=== PATIENT | female | born 1955 | race American Indian/Alaskan Native ===

== ENCOUNTER 2024-03-22 21:06 | Emergency (ER) | payer OTHER, MEDICARE ==
[~2024-03-22] VITALS: Ht 152.4 cm; Wt 69.8 kg
[~2024-03-22 21:06] MED LIST: CELEBREX50 MG PO; HYDROCODON-ACE1 EA10 PO; LEVOFLOXACIN750 MG PO; LIPITOR20 MG PO; SKYRIZI75 MG/0.83 SUB-Q; WELLBUTRIN SR100 MG PO
[2024-03-22 23:02] VITALS: BP 128/59
== END 2024-03-22 23:04 | disposition home or self-care (01) ==
LOC: ED 21:06
DX: S06.0X0A Concussion without loss of consciousness, initial encounter (principal); S50.01XA Contusion of right elbow, initial encounter; S60.011A Contusion of right thumb without damage to nail, initial encounter; S70.01XA Contusion of right hip, initial encounter; E11.9 Type 2 diabetes mellitus without complications; M81.0 Age-related osteoporosis without current pathological fracture; Z86.73 Personal history of transient ischemic attack (TIA), and cerebral infarction without residual deficits; Z88.8 Allergy status to other drugs, medicaments and biological substances; Z88.1 Allergy status to other antibiotic agents; Z79.1 Long term (current) use of non-steroidal anti-inflammatories (NSAID); Z79.899 Other long term (current) drug therapy; W01.0XXA Fall on same level from slipping, tripping and stumbling without subsequent striking against object, initial encounter
CPT/HCPCS: 70450; 73080; 73140; 73502; 99284-25